=== PATIENT | female | born 1990 | race Caucasian/White ===

== ENCOUNTER 2018-07-05 02:53 | Emergency (ER) | payer OTHER ==
[2018-07-05] MEDS: IBUPROFEN 600 MG TAB PO (07:18)
[2018-07-05] MEDS: PROMETHAZINE/DM (CUP) PO (07:18)
[2018-07-05] MEDS: IPRATROPIUM (NEB) 0.5 MG/2.5 ML AMP NEB (07:55)
[2018-07-05] MEDS: ALBUTEROL 0.083% (NEB) 2.5 MG/3 ML AMP NEB (07:55)
== END 2018-07-05 08:34 | disposition home or self-care (01) ==
LOC: FTE 02:53
DX: J20.9 Acute bronchitis, unspecified (principal)
CPT/HCPCS: 71045; 81025; 87400; 94664; 99284-25